=== PATIENT | female | born 2000 | race Caucasian/White ===

== ENCOUNTER 2020-06-10 11:22 | Day surgery (SDC) | payer OTHER ==
[2020-06-10] MEDS ORDERED: hydrALAZINE 20 MG/ML VIAL SLOW IVP PRN (12:32)
[2020-06-10 13:54] LABS: Bilirubin Neg (Negative); Blood, Urine Negative (Negative); Clarity Slightly Cloudy (Clear); Glucose, Urine (Dipstick) Normal (Negative); Ketone, Urine Negative (Negative); Leukocyte 25 (Negative); Nitrite Negative (Negative); Protein, Urine (Dipstick) Negative (Neg-Trace); Specific Gravity, Urine 1.015 (1.002-1.036)
[2020-06-10 14:01] LABS: RBC/HPF 0-3 HPF (0-3); Renal Epithelial 0-3 HPF (None Seen); Squamous Epithelial 0-3 HPF (0-3)
[2020-06-10 14:02] LABS: Bacteria/HPF Rare-Few HPF (None Seen); Mucous/LPF 1+ LPF (<2+)
== END 2020-06-10 15:52 | disposition home health service (06) ==
LOC: CSHLD/OP 11:22
PROVIDERS: ATTEND Obstetrics & Gynecology
DX: O36.8130 Decreased fetal movements, third trimester, not applicable or unspecified (principal); O99.513 Diseases of the respiratory system complicating pregnancy, third trimester; J45.909 Unspecified asthma, uncomplicated; Z3A.31 31 weeks gestation of pregnancy
CPT/HCPCS: 76819; 81003; 81015; 87480; 87510; 87660; 99283

== ENCOUNTER 2020-06-30 11:53 | Observation (INO) | payer OTHER ==
[2020-06-30 12:17] VITALS: BMI 27.1
[2020-06-30] MEDS ORDERED: hydrALAZINE 20 MG/ML VIAL SLOW IVP PRN ×2 (12:31→20:16)
[2020-06-30] MEDS ORDERED: Ondansetron HCl/PF 8 MG in Sodium Chloride 0.9% 50 ML IVPB SCH (12:45)
[2020-06-30] MEDS: Lactated Ringer's 1,000 ML IV SCH ×3 (12:58→15:48)
[2020-06-30] MEDS ORDERED: Lactated Ringer's 1,000 ML IV PRN (15:47)
[2020-06-30] MEDS ORDERED: Promethazine 25 MG TAB PO PRN (15:48)
[2020-06-30 17:46] LABS: SARS-CoV-2 NAA Rapid Test Not Detected (NotDetected)
[2020-06-30] MEDS ORDERED: Acetaminophen 500 MG TAB PO PRN (18:06)
[2020-06-30] MEDS ORDERED: Acetaminophen 500 MG TAB PO SCH (18:15)
[2020-06-30] MEDS ORDERED: Ondansetron PF 4 MG/2 ML Vial IVP PRN (20:16)
[2020-06-30] MEDS ORDERED: Promethazine HCl 25 MG/ML VIAL IM PRN (20:16)
[2020-06-30] MEDS ORDERED: Zolpidem Tartrate 5 MG TAB PO PRN (20:16)
[2020-06-30] MEDS ORDERED: Lactated Ringer's 1,000 ML IV SCH (20:30)
== END 2020-07-01 08:43 | disposition home or self-care (01) ==
LOC: CSHLD/OP 11:53 → CSHLD 20:37
PROVIDERS: ADMIT Family Medicine; ATTEND Family Medicine
DX: O99.613 Diseases of the digestive system complicating pregnancy, third trimester (principal); K52.9 Noninfective gastroenteritis and colitis, unspecified; O47.03 False labor before 37 completed weeks of gestation, third trimester; O21.2 Late vomiting of pregnancy; Z3A.34 34 weeks gestation of pregnancy; Z86.19 Personal history of other infectious and parasitic diseases
CPT/HCPCS: 59025; 96374; 99285; G0378; J2405; Q0169; U0002

== ENCOUNTER 2020-07-26 21:20 | Day surgery (SDC) | payer OTHER ==
[2020-07-26 21:45] VITALS: BMI 27.8
[2020-07-26] MEDS ORDERED: hydrALAZINE 20 MG/ML VIAL SLOW IVP PRN (21:55)
== END 2020-07-26 22:19 | disposition home or self-care (01) ==
LOC: CSHLD/OP 21:20
PROVIDERS: ATTEND Family Medicine
DX: O36.8130 Decreased fetal movements, third trimester, not applicable or unspecified (principal); O99.513 Diseases of the respiratory system complicating pregnancy, third trimester; J45.909 Unspecified asthma, uncomplicated; Z3A.38 38 weeks gestation of pregnancy
CPT/HCPCS: 99282

== ENCOUNTER 2020-07-30 21:57 | Inpatient (IN) | payer OTHER ==
[2020-07-30 22:41] VITALS: BMI 27.8
[2020-07-30] MEDS ORDERED: Ibuprofen 800 MG TAB PO PRN (23:11)
[2020-07-30] MEDS ORDERED: Acetaminophen 500 MG TAB PO PRN (23:11)
[2020-07-30] MEDS ORDERED: Ondansetron PF 4 MG/2 ML Vial IVP PRN (23:11)
[2020-07-30] MEDS ORDERED: Promethazine HCl 25 MG/ML VIAL IM PRN (23:11)
[2020-07-30] MEDS ORDERED: HYDROcodone/Acetaminophen 5/325 mg Tablet PO PRN ×2 (23:11)
[2020-07-30] MEDS ORDERED: Butorphanol Tartrate 1 MG/ML VIAL SLOW IVP PRN (23:11)
[2020-07-30] MEDS ORDERED: Lidocaine 1% (PF) 30 ML VIAL SC PRN (23:11)
[2020-07-30] MEDS ORDERED: hydrALAZINE 20 MG/ML VIAL SLOW IVP PRN (23:11)
[2020-07-30] MEDS ORDERED: NS w/ Oxytocin 30 units 500 ML IV SCH ×2 (23:15)
[2020-07-30] MEDS ORDERED: Lactated Ringer's 1,000 ML IV SCH ×2 (23:15)
[2020-07-31 00:25] LABS: Hemoglobin 11.6 g/dL (12.0-15.5); Mean Corpuscular HGB CONC 35.3 g/dL (32.0-36.0); Mean Corpuscular Hemoglobin 31.9 pg (27.0-33.0); Mean Corpuscular Volume 90.4 fl (81.6-98.3); Mean Platelet Volume 12.1 fl (7.4-10.4); Platelet Count 158 10x3/uL (150-450); RBC Distribution Width 12.8 % (11.5-14.5); Red Blood Cell (RBC) Count 3.64 10x6/uL (3.90-5.03); White Blood Cell (WBC) Count 9.2 10x3/uL (3.5-10.5)
[2020-07-31 00:55] LABS: Hep B Surf Ag Non-Reactive S/CO (NonReactive)
[2020-07-31 00:57] LABS: Syphilis Antibody Nonreactive (Nonreactive); Syphilis Antibody Index 0.08 S/CO (<1.00 Non-Reactive)
[2020-07-31] MEDS ORDERED: Fentanyl 4 mcg/Bup 0.1% Cadd 100 ML ONE (08:08)
[2020-07-31] MEDS ORDERED: Eucerin (Mineral Oil/Petrolatum,White) 30 gm Jar TOP PRN (09:31)
[2020-07-31] MEDS ORDERED: Naloxone HCl 0.4 mg/ml Vial IVP PRN ×2 (09:31)
[2020-07-31] MEDS ORDERED: Lactated Ringer's 500 ML IV PRN (09:31)
[2020-07-31] MEDS ORDERED: diphenhydrAMINE 50 MG/ML VIAL IVP PRN (09:31)
[2020-07-31] MEDS ORDERED: Promethazine HCl 25 MG/ML VIAL IM PRN ×2 (09:31→14:59)
[2020-07-31] MEDS ORDERED: ePHEDrine 50 MG/ML VIAL SLOW IVP PRN (09:31)
[2020-07-31] MEDS ORDERED: Ondansetron PF 4 MG/2 ML Vial IVP PRN ×2 (09:31→14:59)
[2020-07-31] MEDS ORDERED: Acetaminophen 325 MG TAB PO PRN (09:31)
[2020-07-31] MEDS ORDERED: Fentanyl 4 mcg/Bupivacaine 0.1% Cassette 100 ML EPIDURAL SCH (09:45)
[2020-07-31] MEDS ORDERED: Communication Order-Pharmacy FS SCH (09:45)
[2020-07-31 13:57] LABS: SARS-CoV-2 PCR by NAA Not Detected (NotDetected)
[2020-07-31] MEDS ORDERED: NS w/ Oxytocin 30 units 500 ML ONE (14:33)
[2020-07-31] MEDS ORDERED: Adacel (T-DAP) 0.5 ML SYRINGE IM ONE (14:59)
[2020-07-31] MEDS ORDERED: Bisacodyl 10 MG SUPP PR PRN (14:59)
[2020-07-31] MEDS ORDERED: HYDROcodone/Acetaminophen 5/325 mg Tablet PO PRN ×2 (14:59)
[2020-07-31] MEDS ORDERED: Milk Of Magnesia 30 ML UDCUP PO PRN (14:59)
[2020-07-31] MEDS ORDERED: Lanolin Ointment 7 GM TUBE TOP PRN (14:59)
[2020-07-31] MEDS ORDERED: diphenhydrAMINE 25 MG CAP PO PRN (14:59)
[2020-07-31] MEDS ORDERED: hydrALAZINE 20 MG/ML VIAL SLOW IVP PRN (14:59)
[2020-07-31] MEDS ORDERED: Boostrix 0.5 ML (Tdap) VIAL IM ONE (15:30)
[2020-07-31] MEDS: Ferrous Sulfate 325 MG TAB PO SCH (16:16)
[2020-07-31] MEDS: Ibuprofen 800 MG TAB PO SCH (21:38)
[2020-07-31] MEDS: Docusate Calcium (SURFAK) 240 MG CAP PO SCH (21:38)
[2020-08-01] MEDS: Ibuprofen 800 MG TAB PO SCH ×2 (06:45→12:55)
[2020-08-01] MEDS ORDERED: Prenatal Vitamin 1 TAB PO SCH (09:00)
[2020-08-01 11:58] VITALS: BP 99/60; TEMP 98
[2020-08-01] MEDS: Ferrous Sulfate 325 MG TAB PO SCH (18:46)
[2020-08-01] MEDS: Docusate Calcium (SURFAK) 240 MG CAP PO SCH (18:48)
== END 2020-08-01 20:30 | disposition home or self-care (01) | DRG 833 ==
LOC: CSHLD/OP 21:57 → CSHLD 23:12 → UNDOADMIN 07-31 01:47 → CSHLD 07-31 01:47 → CSHPP 07-31 14:42
PROVIDERS: ADMIT Family Medicine; ATTEND Family Medicine
DX: O36.8130 Decreased fetal movements, third trimester, not applicable or unspecified (principal); Z20.828 Contact with and (suspected) exposure to other viral communicable diseases; Z3A.38 38 weeks gestation of pregnancy
CPT/HCPCS: 51702; 85027; 86780; 86850; 86870; 86900; 86901; 87340; 87635; 99285; J2405; J2590; U0003; U0005

== ENCOUNTER 2020-08-03 14:13 | Emergency (ER) | payer OTHER ==
[2020-08-03] MEDS ORDERED: Ketorolac Tromethamine 30 MG/ML VIAL ONE (15:39)
[2020-08-03 16:06] LABS: #Eosinphils 0.7 10x3/uL (0.0-0.5); #Monocytes 0.7 10x3/uL (0.0-1.1); #Neutrophils 6.2 10x3/uL (1.5-8.4); %Basophils 0.4 % (0.0-2.0); %Lymphocytes 18.5 % (18.0-47.0); %Monocytes 7.1 % (0.0-10.0); %Neutrophils 66.6 % (40.0-75.0); Hemoglobin 12.7 g/dL (12.0-15.5); Mean Corpuscular HGB CONC 35.6 g/dL (32.0-36.0); Mean Corpuscular Hemoglobin 32.7 pg (27.0-33.0); Mean Platelet Volume 11.8 fl (7.4-10.4); Platelet Count 219 10x3/uL (150-450); RBC Distribution Width 12.6 % (11.5-14.5); Red Blood Cell (RBC) Count 3.88 10x6/uL (3.90-5.03); White Blood Cell (WBC) Count 9.3 10x3/uL (3.5-10.5)
[2020-08-03 16:23] LABS: ALT (SGPT) 22 U/L (8-55); AST (SGOT) 28 U/L (5-34); Albumin 3.3 g/dL (3.5-5.0); Alkaline Phosphatase 120 U/L (40-100); Anion Gap 13 mmol/L (10-20); BUN (Urea Nitrogen) 12 mg/dL (7.0-18.7); Bilirubin, Total 0.4 mg/dL (0.2-1.2); Calc. Creatinine Clearance 0 mL/min (70-130); Carbon Dioxide 27 mmol/L (22-29); Chloride 104 mmol/L (98-107); Globulin 2.6 g/dL (2.4-3.5); Glucose 80 mg/dL (70-105); Protein, Total 5.9 g/dL (6.0-8.3); Sodium 140 mmol/L (136-145)
== END 2020-08-03 17:56 | disposition home or self-care (01) ==
LOC: CSHERS 14:13
DX: O72.1 Other immediate postpartum hemorrhage (principal); O90.89 Other complications of the puerperium, not elsewhere classified; R51.9 Headache, unspecified; O99.53 Diseases of the respiratory system complicating the puerperium; J45.909 Unspecified asthma, uncomplicated
CPT/HCPCS: 80053; 85025; 96374; J1885

== ENCOUNTER 2021-11-26 14:53 | Emergency (ER) | payer MEDICAID, OTHER, SELFPAY ==
[2021-11-26 15:41] LABS: Bilirubin Small (Negative); Blood, Urine Negative (Negative); Clarity Clear (Clear); Glucose, Urine (Dipstick) Negative (Negative); Ketone, Urine 15 mg/dL (Negative); Leukocyte Trace (Negative); Nitrite Negative (Negative); Protein, Urine (Dipstick) Trace mg/dL (Neg-Trace); Specific Gravity, Urine Greater/Equal 1.030 (1.005-1.030)
[2021-11-26 15:42] LABS: Pregnancy Test - Urine (BHCG) POSITIVE (Negative); Pregu Control Background? CLEAR/WHITE (CLR/WHITE); Pregu Control Bar Appear? YES (CONTROL BAR); Specific Gravity Greater than 1.030 (1.002-1.036)
[2021-11-26 15:52] LABS: Bacteria/HPF Rare-Few HPF (None Seen); Mucous/LPF 1+ LPF (<2+); RBC/HPF 0-3 HPF (0-3)
[2021-11-26 17:23] LABS: #Basophils 0.1 10x3/uL (0.0-0.2); #Eosinphils 0.3 10x3/uL (0.0-0.5); #Monocytes 0.6 10x3/uL (0.0-1.1); #Neutrophils 5.3 10x3/uL (1.5-8.4); %Eosinophils 3.5 % (0.0-6.0); %Lymphocytes 21.2 % (18.0-47.0); %Monocytes 6.9 % (0.0-10.0); %Neutrophils 67.3 % (40.0-75.0); Hemoglobin 14.2 g/dL (12.0-15.5); Mean Corpuscular HGB CONC 35.2 g/dL (32.0-36.0); Mean Corpuscular Hemoglobin 30.5 pg (27.0-33.0); Mean Corpuscular Volume 86.7 fl (81.6-98.3); Mean Platelet Volume 11.8 fl (7.4-10.4); Platelet Count 228 10x3/uL (150-450); Red Blood Cell (RBC) Count 4.65 10x6/uL (3.90-5.03); White Blood Cell (WBC) Count 7.9 10x3/uL (3.5-10.5)
[2021-11-27 11:44] LABS: Chlamydia by PCR Not Detected (NotDetected); GC by PCR Not Detected (NotDetected)
== END 2021-11-26 18:10 | disposition home or self-care (01) ==
LOC: CSHERS 14:53
DX: O20.8 Other hemorrhage in early pregnancy (principal); O21.9 Vomiting of pregnancy, unspecified; Z3A.01 Less than 8 weeks gestation of pregnancy
CPT/HCPCS: 81003; 81015; 81025; 84702; 85025; 86900; 86901; 87480; 87491; 87510; 87591; 87660

== ENCOUNTER 2022-03-05 12:47 | Outpatient (CLI) | payer MEDICAID | END 2022-03-05 12:48 | disposition home or self-care (01) | LOC: CSHULT 12:47 | PROVIDERS: ATTEND Advanced Practice Midwife | DX: Z34.92 Encounter for supervision of normal pregnancy, unspecified, second trimester (principal); Z3A.20 20 weeks gestation of pregnancy | CPT/HCPCS: 76805 ==

== ENCOUNTER 2022-04-04 16:14 | Emergency (ER) | payer MEDICAID ==
[2022-04-04] MEDS ORDERED: Dexamethasone 10 MG/ML VIAL ONE (17:23)
== END 2022-04-04 17:25 | disposition home or self-care (01) ==
LOC: CSHERS 16:14
DX: O99.513 Diseases of the respiratory system complicating pregnancy, third trimester (principal); J45.901 Unspecified asthma with (acute) exacerbation; J30.81 Allergic rhinitis due to animal (cat) (dog) hair and dander; Z3A.26 26 weeks gestation of pregnancy
CPT/HCPCS: 99284; J1100

== ENCOUNTER 2022-05-02 16:52 | Day surgery (SDC) | payer MEDICAID, OTHER ==
[2022-05-02 17:12] VITALS: BMI 30.2
[2022-05-02] MEDS ORDERED: hydrALAZINE 20 MG/ML VIAL SLOW IVP PRN (17:42)
[2022-05-03 16:58] LABS: Chlamydia by PCR Not Detected (NotDetected); GC by PCR Not Detected (NotDetected)
== END 2022-05-02 19:35 | disposition home or self-care (01) ==
LOC: CSHLD/OP 16:52
PROVIDERS: ATTEND Family Medicine
DX: O98.813 Other maternal infectious and parasitic diseases complicating pregnancy, third trimester (principal); B37.31 Acute candidiasis of vulva and vagina; O99.513 Diseases of the respiratory system complicating pregnancy, third trimester; J45.909 Unspecified asthma, uncomplicated; Z3A.29 29 weeks gestation of pregnancy
CPT/HCPCS: 87480; 87491; 87510; 87591; 87660; 99284

== ENCOUNTER 2022-05-13 12:56 | Emergency (ER) | payer OTHER | END 2022-05-13 14:42 | disposition home or self-care (01) | LOC: CSHERS 12:56 | DX: O99.513 Diseases of the respiratory system complicating pregnancy, third trimester (principal); R05.9 Cough, unspecified; Z3A.31 31 weeks gestation of pregnancy | CPT/HCPCS: 71045 ==

== ENCOUNTER 2022-06-05 16:20 | Observation (INO) | payer MEDICAID, OTHER, SELFPAY ==
[2022-06-05 16:55] VITALS: BMI 31.4
[2022-06-05] MEDS ORDERED: hydrALAZINE 20 MG/ML VIAL SLOW IVP PRN ×2 (17:24→19:42)
[2022-06-05 19:27] LABS: Fetal Membranes Rupture No Membranes Rupture (No Rupture)
[2022-06-05] MEDS ORDERED: Acetaminophen 500 MG TAB PO PRN (19:42)
[2022-06-05] MEDS ORDERED: Misoprostol 200 MCG TAB PR PRN (19:42)
[2022-06-05] MEDS ORDERED: Diphenoxylate HCl/Atropine Tablet PO PRN (19:42)
[2022-06-05] MEDS ORDERED: Methylergonovine 0.2 MG/ML VIAL IM PRN (19:42)
[2022-06-05] MEDS ORDERED: Ondansetron PF 4 MG/2 ML Vial IVP PRN (19:42)
[2022-06-05] MEDS ORDERED: Carboprost 250 MCG/ML AMP IM PRN (19:42)
[2022-06-05] MEDS ORDERED: NS w/ Oxytocin 30 units 500 ML IV SCH (20:15)
[2022-06-05] MEDS: Lactated Ringer's 1,000 ML IV SCH (20:31)
[2022-06-05 20:58] LABS: #Basophils 0.1 10x3/uL (0.0-0.2); #Eosinphils 0.5 10x3/uL (0.0-0.5); #Monocytes 0.9 10x3/uL (0.0-1.1); #Neutrophils 7.3 10x3/uL (1.5-8.4); %Basophils 0.5 % (0.0-2.0); %Eosinophils 4.8 % (0.0-6.0); %Lymphocytes 19.8 % (18.0-47.0); %Monocytes 7.9 % (0.0-10.0); %Neutrophils 65.5 % (40.0-75.0); Hemoglobin 11.2 g/dL (12.0-15.5); Mean Corpuscular HGB CONC 34.9 g/dL (32.0-36.0); Mean Corpuscular Hemoglobin 32.4 pg (27.0-33.0); Mean Corpuscular Volume 92.8 fl (81.6-98.3); Mean Platelet Volume 11.5 fl (7.4-10.4); Platelet Count 167 10x3/uL (150-450); RBC Distribution Width 13.4 % (11.5-14.5); Red Blood Cell (RBC) Count 3.46 10x6/uL (3.90-5.03); White Blood Cell (WBC) Count 11.2 10x3/uL (3.5-10.5)
[2022-06-05 21:06] LABS: ALT (SGPT) 13 U/L (8-55); AST (SGOT) 17 U/L (5-34); Albumin 3.3 g/dL (3.5-5.0); Alkaline Phosphatase 80 U/L (40-110); Anion Gap 13 mmol/L (10-20); BUN (Urea Nitrogen) 10 mg/dL (7.0-18.7); Bilirubin, Total 0.3 mg/dL (0.2-1.2); Calc. Creatinine Clearance 217 mL/min (70-130); Calcium 8.7 mg/dL (7.8-10.44); Carbon Dioxide 23 mmol/L (22-29); Chloride 107 mmol/L (98-107); Estimated GFR 129; Globulin 2.3 g/dL (2.4-3.5); Glucose 89 mg/dL (70-105); Potassium 3.8 mmol/L (3.5-5.1); Protein, Total 5.6 g/dL (6.0-8.3); Sodium 139 mmol/L (136-145)
[2022-06-05 23:29] LABS: Bilirubin Neg (Negative); Blood, Urine Negative (Negative); Clarity Clear (Clear); Glucose, Urine (Dipstick) Normal (Negative); Ketone, Urine Negative (Negative); Leukocyte 25 (Negative); Nitrite Negative (Negative); Protein, Urine (Dipstick) Negative (Neg-Trace); Specific Gravity, Urine 1.015 (1.005-1.030); Urobilinogen Normal mg/dL (Less than 2)
[2022-06-05 23:43] LABS: Bacteria/HPF None Seen HPF (None Seen); CAUTI Indications for Culture Pregnancy; RBC/HPF None Seen HPF (0-3); Squamous Epithelial 0-3 HPF (0-3); WBC/HPF 0-3 HPF (0-3)
[2022-06-05 23:45] LABS: Urine Culture Reflex Yes Yes
[2022-06-06] MEDS: Lactated Ringer's 1,000 ML IV SCH (00:11)
== END 2022-06-06 13:07 | disposition home health service (06) ==
LOC: CSHLD/OP 16:20 → CSHLD 19:47
PROVIDERS: ADMIT Family Medicine; ATTEND Family Medicine
DX: O36.8130 Decreased fetal movements, third trimester, not applicable or unspecified (principal); O41.03X0 Oligohydramnios, third trimester, not applicable or unspecified; O99.513 Diseases of the respiratory system complicating pregnancy, third trimester; J45.909 Unspecified asthma, uncomplicated; Z79.899 Other long term (current) drug therapy; Z3A.34 34 weeks gestation of pregnancy
CPT/HCPCS: 76819; 80053; 81001; 84112; 85025; 87086; 96360; 96361; 99285; G0378; J7120

== ENCOUNTER 2022-06-14 13:37 | Day surgery (SDC) | payer OTHER ==
[2022-06-14] MEDS ORDERED: hydrALAZINE 20 MG/ML VIAL SLOW IVP PRN (14:36)
[2022-06-14 16:17] LABS: Bilirubin Neg (Negative); Blood, Urine Negative (Negative); Clarity Clear (Clear); Glucose, Urine (Dipstick) Normal (Negative); Ketone, Urine 5 mg/dL (Negative); Leukocyte 500 (Negative); Nitrite Negative (Negative); Protein, Urine (Dipstick) 15 mg/dl (Neg-Trace); Specific Gravity, Urine 1.025 (1.005-1.030)
[2022-06-14 16:59] LABS: RBC/HPF 0-3 HPF (0-3)
[2022-06-14 17:00] LABS: Bacteria/HPF Rare-Few HPF (None Seen); CAUTI Indications for Culture Pregnancy; WBC/HPF 0-3 HPF (0-3)
[2022-06-14 17:01] LABS: Urine Culture Reflex Yes Yes
== END 2022-06-14 15:58 | disposition home or self-care (01) ==
LOC: CSHLD/OP 13:37
PROVIDERS: ATTEND Family Medicine
DX: O26.893 Other specified pregnancy related conditions, third trimester (principal); R10.30 Lower abdominal pain, unspecified; R10.2 Pelvic and perineal pain; Z79.899 Other long term (current) drug therapy; Z3A.35 35 weeks gestation of pregnancy
CPT/HCPCS: 81001; 87086; 87480; 87510; 87660; 99283

== ENCOUNTER 2022-06-29 18:18 | Day surgery (SDC) | payer OTHER ==
[2022-06-29 19:01] VITALS: BMI 31.7
[2022-06-29] MEDS ORDERED: hydrALAZINE 20 MG/ML VIAL SLOW IVP PRN (19:02)
== END 2022-06-29 19:41 | disposition home or self-care (01) ==
LOC: CSHLD/OP 18:18
PROVIDERS: ATTEND Family Medicine
DX: O36.8130 Decreased fetal movements, third trimester, not applicable or unspecified (principal); O99.513 Diseases of the respiratory system complicating pregnancy, third trimester; J45.909 Unspecified asthma, uncomplicated; Z79.899 Other long term (current) drug therapy; Z3A.37 37 weeks gestation of pregnancy
CPT/HCPCS: 99282

== ENCOUNTER 2022-07-03 18:11 | Day surgery (SDC) | payer OTHER ==
[2022-07-03 18:38] VITALS: BMI 32.1
[2022-07-03] MEDS ORDERED: hydrALAZINE 20 MG/ML VIAL SLOW IVP PRN (19:18)
[2022-07-03] MEDS ORDERED: Meclizine HCl 25 MG TAB PO SCH (20:15)
== END 2022-07-03 20:41 | disposition home or self-care (01) ==
LOC: CSHLD/OP 18:11
PROVIDERS: ATTEND Family Medicine
DX: O99.891 Other specified diseases and conditions complicating pregnancy (principal); R42 Dizziness and giddiness; O99.513 Diseases of the respiratory system complicating pregnancy, third trimester; J45.909 Unspecified asthma, uncomplicated; Z79.899 Other long term (current) drug therapy; Z3A.38 38 weeks gestation of pregnancy
CPT/HCPCS: 99282

== ENCOUNTER 2022-07-07 14:04 | Day surgery (SDC) | payer OTHER ==
[2022-07-07 14:31] VITALS: BMI 31.8
[2022-07-07] MEDS ORDERED: hydrALAZINE 20 MG/ML VIAL SLOW IVP PRN (15:03)
== END 2022-07-07 15:40 | disposition home or self-care (01) ==
LOC: CSHLD/OP 14:04
PROVIDERS: ATTEND Family Medicine
DX: O23.593 Infection of other part of genital tract in pregnancy, third trimester (principal); N89.8 Other specified noninflammatory disorders of vagina; O26.853 Spotting complicating pregnancy, third trimester; O99.513 Diseases of the respiratory system complicating pregnancy, third trimester; J45.909 Unspecified asthma, uncomplicated; Z79.899 Other long term (current) drug therapy; Z3A.38 38 weeks gestation of pregnancy
CPT/HCPCS: 87480; 87510; 87660; 99283

== ENCOUNTER 2022-07-07 20:16 | Inpatient (IN) | payer OTHER ==
[2022-07-07] MEDS ORDERED: Misoprostol 200 MCG TAB PR PRN (21:44)
[2022-07-07] MEDS ORDERED: Ondansetron PF 4 MG/2 ML Vial IVP PRN (21:44)
[2022-07-07] MEDS ORDERED: Lidocaine 1% (PF) 30 ML VIAL SC PRN (21:44)
[2022-07-07] MEDS ORDERED: hydrALAZINE 20 MG/ML VIAL SLOW IVP PRN (21:44)
[2022-07-07] MEDS ORDERED: Promethazine HCl 25 MG/ML VIAL IM PRN (21:44)
[2022-07-07] MEDS ORDERED: Tranexamic Acid 1,000 MG/10 ML VIAL IVP PRN (21:44)
[2022-07-07] MEDS ORDERED: Methylergonovine 0.2 MG/ML VIAL IM PRN (21:44)
[2022-07-07] MEDS ORDERED: Diphenoxylate HCl/Atropine Tablet PO PRN (21:44)
[2022-07-07] MEDS ORDERED: Carboprost 250 MCG/ML AMP IM PRN (21:44)
[2022-07-07 22:00] LABS: Hemoglobin 12.1 g/dL (12.0-15.5); Mean Corpuscular HGB CONC 35.1 g/dL (32.0-36.0); Mean Corpuscular Hemoglobin 32.6 pg (27.0-33.0); Mean Platelet Volume 12.4 fl (7.4-10.4); Platelet Count 162 10x3/uL (150-450); RBC Distribution Width 13.2 % (11.5-14.5); Red Blood Cell (RBC) Count 3.71 10x6/uL (3.90-5.03); White Blood Cell (WBC) Count 11.3 10x3/uL (3.5-10.5)
[2022-07-07] MEDS ORDERED: NS w/ Oxytocin 30 units 500 ML IV SCH (22:00)
[2022-07-07 22:34] LABS: Syphilis Antibody Nonreactive (Nonreactive); Syphilis Antibody Index 0.13 S/CO (<1.00 Non-Reactive)
[2022-07-07 22:38] LABS: HBSAg Index 0.12 S/CO (0-0.99); Hep B Surf Ag - L&D Non-Reactive S/CO (NonReactive)
[2022-07-08] MEDS: Lactated Ringer's 1,000 ML IV SCH ×2 (00:40→09:38)
[2022-07-08] MEDS ORDERED: Ibuprofen 800 MG TAB PO SCH (07:00)
[2022-07-08] MEDS ORDERED: Lanolin Ointment 7 GM TUBE TOP PRN (09:35)
[2022-07-08] MEDS ORDERED: hydrALAZINE 20 MG/ML VIAL SLOW IVP PRN (09:35)
[2022-07-08] MEDS ORDERED: diphenhydrAMINE 25 MG CAP PO PRN (09:35)
[2022-07-08] MEDS ORDERED: HYDROcodone/Acetaminophen 5/325 mg Tablet PO PRN (09:35)
[2022-07-08] MEDS ORDERED: Promethazine HCl 25 MG/ML VIAL IM PRN (09:35)
[2022-07-08] MEDS ORDERED: Boostrix 0.5 ML (Tdap) VIAL (>/=7 yrs of age) IM ONE (09:35)
[2022-07-08] MEDS ORDERED: NS w/ Oxytocin 30 units 500 ML IV SCH (09:35)
[2022-07-08] MEDS ORDERED: Bisacodyl 10 MG SUPP PR PRN (09:35)
[2022-07-08] MEDS ORDERED: Ondansetron PF 4 MG/2 ML Vial IVP PRN (09:35)
[2022-07-08] MEDS ORDERED: Milk Of Magnesia 30 ML UDCUP PO PRN (09:35)
[2022-07-08] MEDS ORDERED: Ferrous Sulfate 325 MG TAB PO SCH (10:00)
[2022-07-08] MEDS ORDERED: Prenatal Vitamin 1 TAB PO SCH (10:00)
[2022-07-08] MEDS ORDERED: Docusate 100 MG CAP PO SCH ×2 (10:00→21:00)
[2022-07-08] MEDS: Ibuprofen 800 MG TAB PO SCH ×2 (14:54→21:23)
[2022-07-08] MEDS: Ferrous Sulfate 325 MG TAB PO SCH (21:22)
[2022-07-09] MEDS: Ibuprofen 800 MG TAB PO SCH ×2 (06:13→08:51)
[2022-07-09 08:02] VITALS: BP 112/76; TEMP 97.8
[2022-07-09] MEDS ORDERED: Prenatal Vitamin 1 TAB PO SCH (09:00)
[2022-07-09] MEDS: Ferrous Sulfate 325 MG TAB PO SCH (09:29)
== END 2022-07-09 13:00 | disposition home or self-care (01) | DRG 807 ==
LOC: CSHLD/OP 20:16 → CSHLD 22:48 → CSHPED 07-08 08:45
PROVIDERS: ADMIT Family Medicine; ATTEND Family Medicine
PROC: 10E0XZZ Delivery of Products of Conception, External Approach (ICD-10-PCS; principal; 2022-07-08)
PROC: 3E0334Z Introduction of Serum, Toxoid and Vaccine into Peripheral Vein, Percutaneous Approach (ICD-10-PCS; 2022-07-08)
DX: O42.02 Full-term premature rupture of membranes, onset of labor within 24 hours of rupture (principal); Z37.0 Single live birth; O26.893 Other specified pregnancy related conditions, third trimester; Z67.41 Type O blood, Rh negative; Z3A.39 39 weeks gestation of pregnancy; E05.90 Thyrotoxicosis, unspecified without thyrotoxic crisis or storm; O99.284 Endocrine, nutritional and metabolic diseases complicating childbirth; Z79.899 Other long term (current) drug therapy; O69.81X0 Labor and delivery complicated by cord around neck, without compression, not applicable or unspecified
CPT/HCPCS: 36415; 85027; 85461; 86780; 86850; 86870; 86900; 86901; 87340; 87480; 87510; 87660; 90384; 96372; 99283; 99285

== ENCOUNTER 2022-10-16 19:50 | Emergency (ER) | payer OTHER ==
[2022-10-16 21:58] LABS: Bilirubin Neg (Negative); Blood, Urine Negative (Negative); Clarity Clear (Clear); Glucose, Urine (Dipstick) Normal (Negative); Ketone, Urine Negative (Negative); Leukocyte 100 (Negative); Nitrite Negative (Negative); Protein, Urine (Dipstick) Negative (Neg-Trace); Specific Gravity, Urine 1.025 (1.005-1.030); Urobilinogen Normal mg/dL (Less than 2)
[2022-10-16 21:59] LABS: #Basophils 0.1 10x3/uL (0.0-0.2); #Eosinphils 0.7 10x3/uL (0.0-0.5); #Monocytes 0.5 10x3/uL (0.0-1.1); #Neutrophils 3.4 10x3/uL (1.5-8.4); %Basophils 1.3 % (0.0-2.0); %Monocytes 7.6 % (0.0-10.0); Hemoglobin 12.9 g/dL (12.0-15.5); Mean Corpuscular HGB CONC 34.7 g/dL (32.0-36.0); Mean Corpuscular Hemoglobin 30.4 pg (27.0-33.0); Mean Corpuscular Volume 87.7 fl (81.6-98.3); Mean Platelet Volume 11.4 fl (7.4-10.4); Platelet Count 246 10x3/uL (150-450); RBC Distribution Width 11.9 % (11.5-14.5); Red Blood Cell (RBC) Count 4.24 10x6/uL (3.90-5.03); White Blood Cell (WBC) Count 6.8 10x3/uL (3.5-10.5)
[2022-10-16 22:06] LABS: Pregnancy Test - Urine (BHCG) Negative (Negative); Pregu Control Background? CLEAR/WHITE (CLR/WHITE); Pregu Control Bar Appear? YES (CONTROL BAR); Specific Gravity 1.025 (1.002-1.036)
[2022-10-16 22:12] LABS: ALT (SGPT) 41 U/L (8-55); AST (SGOT) 29 U/L (5-34); Albumin 4.2 g/dL (3.5-5.0); Alkaline Phosphatase 92 U/L (40-110); Anion Gap 15 mmol/L (10-20); BUN (Urea Nitrogen) 17 mg/dL (7.0-18.7); Bilirubin, Total 0.4 mg/dL (0.2-1.2); Calc. Creatinine Clearance 0 mL/min (70-130); Calcium 8.8 mg/dL (7.8-10.44); Carbon Dioxide 23 mmol/L (22-29); Chloride 106 mmol/L (98-107); Estimated GFR 97; Globulin 2.6 g/dL (2.4-3.5); Glucose 99 mg/dL (70-105); Potassium 3.7 mmol/L (3.5-5.1); Protein, Total 6.8 g/dL (6.0-8.3); Sodium 140 mmol/L (136-145)
[2022-10-16 22:25] LABS: CAUTI Indications for Culture Pelvic or flank pain; RBC/HPF None Seen HPF (0-3)
[2022-10-16 22:26] LABS: Bacteria/HPF 1+ HPF (None Seen)
[2022-10-16 22:27] LABS: Urine Culture Reflex No No
[2022-10-16] MEDS ORDERED: Ketorolac Tromethamine 30 MG/ML VIAL ONE (22:52)
== END 2022-10-16 23:52 | disposition home or self-care (01) ==
LOC: CSHERS 19:50
DX: I88.0 Nonspecific mesenteric lymphadenitis (principal); N39.0 Urinary tract infection, site not specified
CPT/HCPCS: 74176; 76856; 80053; 81001; 81025; 85025; 93976; 96374; J1885

== ENCOUNTER 2022-12-30 12:38 | Emergency (ER) | payer SELFPAY ==
[2022-12-30 13:54] LABS: %Basophils 1.1 % (0.0-2.0); %Eosinophils 12.9 % (0.0-6.0); %Lymphocytes 22.1 % (18.0-47.0); %Monocytes 7.7 % (0.0-10.0); %Neutrophils 55.9 % (40.0-75.0); Hemoglobin 14.8 g/dL (12.0-15.5); Mean Corpuscular HGB CONC 34.4 g/dL (32.0-36.0); Mean Corpuscular Volume 87.2 fl (81.6-98.3); Mean Platelet Volume 11.6 fl (7.4-10.4); Platelet Count 267 10x3/uL (150-450); RBC Distribution Width 12.1 % (11.5-14.5); Red Blood Cell (RBC) Count 4.93 10x6/uL (3.90-5.03); White Blood Cell (WBC) Count 9.2 10x3/uL (3.5-10.5)
[2022-12-30 13:55] LABS: #Basophils 0.1 10x3/uL (0.0-0.2); #Eosinphils 1.2 10x3/uL (0.0-0.5); #Monocytes 0.7 10x3/uL (0.0-1.1); #Neutrophils 5.2 10x3/uL (1.5-8.4)
[2022-12-30] MEDS ORDERED: Ipratropium/Albuterol 3 ML NEB ONE (14:03)
[2022-12-30 14:05] LABS: ALT (SGPT) 18 U/L (8-55); AST (SGOT) 22 U/L (5-34); Albumin 4.6 g/dL (3.5-5.0); Alkaline Phosphatase 84 U/L (40-110); Anion Gap 14 mmol/L (10-20); BUN (Urea Nitrogen) 13 mg/dL (7.0-18.7); Bilirubin, Total 0.5 mg/dL (0.2-1.2); Calc. Creatinine Clearance 0 mL/min (70-130); Calcium 9.5 mg/dL (7.8-10.44); Carbon Dioxide 21 mmol/L (22-29); Chloride 107 mmol/L (98-107); Estimated GFR 100; Glucose 92 mg/dL (70-105); Protein, Total 7.6 g/dL (6.0-8.3); Sodium 138 mmol/L (136-145)
[2022-12-30 15:37] LABS: SARS-CoV-2 NAA Rapid Test Not Detected (NotDetected)
== END 2022-12-30 16:14 | disposition home or self-care (01) ==
LOC: CSHERS 12:38
DX: B34.9 Viral infection, unspecified (principal); Z20.822 Contact with and (suspected) exposure to COVID-19
CPT/HCPCS: 71045; 80053; 85025; J7620

== ENCOUNTER 2023-01-27 14:58 | Emergency (ER) | payer SELFPAY ==
[2023-01-27 17:07] LABS: Pregnancy Test - Urine (BHCG) Negative (Negative); Pregu Control Background? CLEAR/WHITE (CLR/WHITE); Pregu Control Bar Appear? YES (CONTROL BAR)
== END 2023-01-27 17:33 | disposition home or self-care (01) ==
LOC: CSHERS 14:58
DX: L03.211 Cellulitis of face (principal); K04.7 Periapical abscess without sinus; J45.909 Unspecified asthma, uncomplicated
CPT/HCPCS: 81025; 96372; 99283; J3490

== ENCOUNTER 2023-02-26 18:23 | Emergency (ER) | payer SELFPAY ==
[2023-02-26 19:05] LABS: #Basophils 0.1 10x3/uL (0.0-0.2); #Monocytes 0.6 10x3/uL (0.0-1.1); #Neutrophils 3.1 10x3/uL (1.5-8.4); %Basophils 0.7 % (0.0-2.0); %Eosinophils 15.1 % (0.0-6.0); %Lymphocytes 29.5 % (18.0-47.0); %Monocytes 8.5 % (0.0-10.0); %Neutrophils 46.1 % (40.0-75.0); Hematocrit 36.3 % (34.9-44.5); Hemoglobin 12.7 g/dL (12.0-15.5); Mean Corpuscular Hemoglobin 30.7 pg (27.0-33.0); Mean Corpuscular Volume 87.7 fl (81.6-98.3); Mean Platelet Volume 11.7 fl (7.4-10.4); Platelet Count 242 10x3/uL (150-450); RBC Distribution Width 13.1 % (11.5-14.5); Red Blood Cell (RBC) Count 4.14 10x6/uL (3.90-5.03); White Blood Cell (WBC) Count 6.7 10x3/uL (3.5-10.5)
[2023-02-26 19:09] LABS: BHCG - Serum Negative (NEGATIVE); Pregs Control Background? CLEAR/WHITE (CLR/WHITE); Pregs Control Bar Appear? YES (CONTROL BAR)
[2023-02-26 19:15] LABS: ALT (SGPT) 15 U/L (8-55); AST (SGOT) 20 U/L (5-34); Albumin 4.2 g/dL (3.5-5.0); Alkaline Phosphatase 75 U/L (40-110); Anion Gap 15 mmol/L (10-20); BUN (Urea Nitrogen) 12 mg/dL (7.0-18.7); Bilirubin, Total 0.3 mg/dL (0.2-1.2); Calc. Creatinine Clearance 0 mL/min (70-130); Calcium 8.9 mg/dL (7.8-10.44); Carbon Dioxide 23 mmol/L (22-29); Chloride 107 mmol/L (98-107); Estimated GFR 95; Globulin 2.6 g/dL (2.4-3.5); Glucose 87 mg/dL (70-105); Potassium 3.6 mmol/L (3.5-5.1); Protein, Total 6.8 g/dL (6.0-8.3); Sodium 141 mmol/L (136-145)
[2023-02-26] MEDS ORDERED: Ipratropium/Albuterol 3 ML NEB ONE (20:17)
[2023-02-26] MEDS ORDERED: Dexamethasone 4 MG TAB ONE (20:17)
== END 2023-02-26 20:40 | disposition home or self-care (01) ==
LOC: CSHERS 18:23
DX: J45.901 Unspecified asthma with (acute) exacerbation (principal); N92.0 Excessive and frequent menstruation with regular cycle; J32.9 Chronic sinusitis, unspecified
CPT/HCPCS: 80053; 84703; 85025; 93005; 94640; J7620; J8540

== ENCOUNTER 2023-08-02 14:57 | Emergency (ER) | payer SELFPAY ==
[2023-08-02 15:43] LABS: Bilirubin Neg (Negative); Blood, Urine Negative (Negative); Clarity Clear (Clear); Glucose, Urine (Dipstick) Normal (Negative); Ketone, Urine Negative (Negative); Leukocyte Negative (Negative); Nitrite Negative (Negative); Protein, Urine (Dipstick) Negative (Neg-Trace); Urobilinogen Normal mg/dL (Less than 2)
[2023-08-02 15:46] LABS: Pregnancy Test - Urine (BHCG) Negative (Negative); Pregu Control Background? CLEAR/WHITE (CLR/WHITE); Pregu Control Bar Appear? YES (CONTROL BAR)
[2023-08-02 16:15] LABS: RBC/HPF None Seen HPF (0-3)
[2023-08-02 16:16] LABS: Bacteria/HPF None Seen HPF (None Seen); CAUTI Indications for Culture Dysuria,urgency,freq; Mucous/LPF Rare LPF (<2+); Squamous Epithelial 0-3 HPF (0-3); Urine Culture Reflex No No; WBC/HPF 0-3 HPF (0-3)
== END 2023-08-02 16:54 | disposition home or self-care (01) ==
LOC: CSHERS 14:57
DX: R10.30 Lower abdominal pain, unspecified (principal); Z55.6 Problems related to health literacy
CPT/HCPCS: 81001; 81025; 99284

== ENCOUNTER 2023-09-18 19:19 | Emergency (ER) | payer SELFPAY ==
[2023-09-18 19:39] LABS: Bilirubin Neg (Negative); Blood, Urine Negative (Negative); Clarity Clear (Clear); Glucose, Urine (Dipstick) Normal (Negative); Ketone, Urine Negative (Negative); Leukocyte Negative (Negative); Nitrite Negative (Negative); Protein, Urine (Dipstick) Negative (Neg-Trace); Urobilinogen Normal mg/dL (Less than 2)
[2023-09-18 19:52] LABS: Bacteria/HPF None Seen HPF (None Seen); CAUTI Indications for Culture Dysuria,urgency,freq; RBC/HPF None Seen HPF (0-3); Squamous Epithelial None Seen HPF (0-3); WBC/HPF None Seen HPF (0-3)
[2023-09-18 19:53] LABS: Urine Culture Reflex No No
== END 2023-09-18 20:20 | disposition home or self-care (01) ==
LOC: CSHERS 19:19
DX: R30.0 Dysuria (principal)
CPT/HCPCS: 81001; 99283

== ENCOUNTER 2024-02-23 13:36 | Emergency (ER) | payer SELFPAY | END 2024-02-23 14:10 | disposition home or self-care (01) | LOC: CSHERS 13:36 | DX: H60.92 Unspecified otitis externa, left ear (principal) | CPT/HCPCS: 99282 ==

== ENCOUNTER 2024-03-13 10:23 | Emergency (ER) | payer SELFPAY ==
[2024-03-13] MEDS ORDERED: Ondansetron PF 4 MG/2 ML Vial ONE (10:46)
[2024-03-13] MEDS ORDERED: Dexamethasone 10 MG/ML VIAL ONE (10:46)
[2024-03-13] MEDS ORDERED: Magnesium 2 GM/50 ML BAG (IN WATER) ONE (10:47)
[2024-03-13] MEDS ORDERED: Ipratropium/Albuterol 3 ML NEB ONE (10:49)
[2024-03-13] MEDS ORDERED: Albuterol 2.5 MG (0.5 mL) NEB ONE (10:49)
[2024-03-13 11:21] LABS: BHCG - Serum Negative (NEGATIVE); Pregs Control Background? CLEAR/WHITE (CLR/WHITE); Pregs Control Bar Appear? YES (CONTROL BAR)
[2024-03-13 11:28] LABS: ALT (SGPT) 16 U/L (8-55); AST (SGOT) 35 U/L (5-34); Albumin 3.7 g/dL (3.5-5.0); Alkaline Phosphatase 46 U/L (40-110); Anion Gap 14 mmol/L (10-20); BUN (Urea Nitrogen) 11 mg/dL (7.0-18.7); Bilirubin, Total 0.4 mg/dL (0.2-1.2); Calc. Creatinine Clearance 0 mL/min (70-130); Carbon Dioxide 17 mmol/L (22-29); Chloride 108 mmol/L (98-107); Estimated GFR 87; Globulin 3.6 g/dL (2.4-3.5); Glucose 93 mg/dL (70-105); Lipase 14 U/L (8-78); Potassium 4.3 mmol/L (3.5-5.1); Protein, Total 7.3 g/dL (6.0-8.3); Sodium 135 mmol/L (136-145)
[2024-03-13 11:41] LABS: #Basophils 0.01 10x3/uL (0.0-0.2); #Monocytes 0.62 10x3/uL (0.0-1.1); #Neutrophils 4.62 10x3/uL (1.5-8.4); %Basophils 0.2 % (0.0-2.0); %Lymphocytes 20.4 % (18.0-47.0); %Monocytes 9.4 % (0.0-10.0); %Neutrophils 69.5 % (40.0-75.0); Hematocrit 36.6 % (34.9-44.5); Hemoglobin 12.8 g/dL (12.0-15.5); Mean Corpuscular Hemoglobin 30.3 pg (27.0-33.0); Mean Corpuscular Volume 86.7 fL (81.6-98.3); Mean Platelet Volume 12.2 fL (7.4-10.4); Platelet Count 118 10x3/uL (150-450); RBC Distribution Width 12.3 % (11.5-14.5); Red Blood Cell (RBC) Count 4.22 10x6/uL (3.90-5.03); White Blood Cell (WBC) Count 6.6 10x3/uL (3.5-10.5)
[2024-03-13 13:15] LABS: Platelet Adequacy Comment Appears Decreased; RBC Morph Comment Within Normal Limits
== END 2024-03-13 13:24 | disposition home or self-care (01) ==
LOC: CSHERS 10:23
DX: E86.0 Dehydration (principal); J11.1 Influenza due to unidentified influenza virus with other respiratory manifestations
CPT/HCPCS: 36415; 80053; 83690; 84703; 85025; 87428; 93005; 94644; 96374; 96375; J1100; J2405; J3475; J7611; J7620

== ENCOUNTER 2024-04-12 18:58 | Emergency (ER) | payer MEDICAID, SELFPAY ==
[2024-04-12] MEDS ORDERED: predniSONE 20 MG TAB ONE (21:05)
== END 2024-04-12 21:13 | disposition home or self-care (01) ==
LOC: CSHERS 18:58
DX: J45.901 Unspecified asthma with (acute) exacerbation (principal); Z79.51 Long term (current) use of inhaled steroids
CPT/HCPCS: 71045; J7512